=== PATIENT | male | born 1995 | race Caucasian/White ===

== ENCOUNTER 2024-01-30 15:05 | Emergency (ER) | payer MEDICAID ==
[~2024-01-30] VITALS: Ht 177.8 cm; Wt 91.0 kg
[2024-01-30 15:19] VITALS: O2SAT 97
[2024-01-30] MEDS ORDERED: ACETAMINOPHEN 325MG TABLET PO ONE (16:00)
[2024-01-30] MEDS ORDERED: KETOROLAC 30MG/ML VIAL IM ONE (16:00)
[2024-01-30] MEDS ORDERED: TETANUS, DIPHTHERIA, PERTUSSIS VAC/PF 0.5ML (>10YR OLD) IM ONE (16:00)
[2024-01-30] MEDS: LIDOCAINE HCL 1% 20ML VIAL INFIL ONE (17:45)
[2024-01-30] MEDS: MIDAZOLAM HCL 2 MG/2 ML VIAL IM ONE (18:16)
[2024-01-30 18:39] LABS: BASOPHILS % 0.4 % (0.0-2.0); EOSINOPHILS % 0.8 % (0.0-5.0); HEMATOCRIT. 40.8 % (42.0-52.0); HEMOGLOBIN. 13.9 g/dL (14.0-18.0); LYMPHOCYTES % 20.4 % (20.0-50.0); MEAN CORPUSCULAR HEMOGLOBIN 31.8 pg (28.0-32.0); MEAN CORPUSCULAR VOLUME 93.3 fL (80.0-94.0); MEAN PLATELET VOLUME 9.5 fl (7.4-10.4); MONOCYTES % 9.1 % (2.0-8.0); NEUTROPHILS % 69.3 % (40.0-76.0); PLATELET 367 x1000/uL (130-400); RED BLOOD CELL COUNT 4.37 mill/uL (4.7-6.1); RED CELL DISTRIBUTION WIDTH 14.9 % (11.6-14.6)
[2024-01-30 18:44] LABS: CHLORIDE 109 mEq/L (98-107); POTASSIUM 3.4 mEq/L (3.5-5.1); SODIUM 141 mEq/L (136-145)
[2024-01-30 18:45] LABS: CALCIUM 9.9 mg/dL (8.7-10.4); CARBON DIOXIDE 23 mEq/L (21-32)
[2024-01-30 18:50] LABS: GLUCOSE 101 mg/dL (70-105); UREA NITROGEN BLOOD 12 mg/dL (9-23)
[2024-01-30 18:52] LABS: ACETAMINOPHEN < 2 ug/mL (10-30)
[2024-01-30 19:03] LABS: ETHANOL BLOOD < 10 mg/dL (<10)
[2024-01-30] MEDS: ACETAMINOPHEN 325MG TABLET PO NR (21:30)
[2024-01-30] MEDS: KETOROLAC 30MG/ML VIAL IM NR (21:30)
[2024-01-30 22:44] LABS: CLARITY URINE CLEAR (CLEAR); COLOR URINE DARK YELLOW (YELLOW); GLUCOSE URINE NEGATIVE (NEGATIVE); KETONES URINE 3+ (NEGATIVE); LEUKOCYTE ESTERASE URINE NEGATIVE (NEGATIVE); NITRITE URINE NEGATIVE (NEGATIVE); OCCULT BLOOD URINE NEGATIVE (NEGATIVE); PROTEIN URINE 1+ (NEGATIVE); SPECIFIC GRAVITY URINE 1.034 (1.005-1.030)
[2024-01-30] MEDS: TETANUS, DIPHTHERIA, PERTUSSIS VAC/PF 0.5ML (>10YR OLD) IM ONE (22:47)
[2024-01-30 22:54] LABS: *AMPHETAMINES SCREEN URINE PRESUMPTIVE POSITIVE (NEGATIVE); *BARBITURATES SCREEN URINE NEGATIVE (NEGATIVE); *BENZODIAZEPINES SCREEN URINE PRESUMPTIVE POSITIVE (NEGATIVE); *COCAINE SCREEN URINE PRESUMPTIVE POSITIVE (NEGATIVE)
[2024-01-30 22:55] LABS: CANNABINOID URINE SCREEN PRESUMPTIVE POSITIVE (NEGATIVE); ECSTASY MDMA SCREEN URINE NEGATIVE (NEGATIVE); METHADONE URINE SCREEN NEGATIVE (NEGATIVE); OPIATES URINE SCREEN NEGATIVE (NEGATIVE); PHENCYCLIDINE URINE SCREEN NEGATIVE (NEGATIVE)
[2024-01-30 23:13] LABS: BACTERIA URINE 1+; RBC URINE NONE SEEN /hpf (0-2); SQUAMOUS EPITHELIAL CELL URINE 1+ /lpf (RARE/1+); WBC URINE 0-2 /hpf (0-2); YEAST URINE NONE SEEN
[2024-01-30] MEDS: AMPICILLIN SOD/SULBACTAM NA 3 G in SODIUM CHLORIDE 0.9% 100 ML IV SCH (23:46)
[2024-01-31 18:46] VITALS: BP 119/77; PULSE 79; RESP 18; TEMP 36.83628; O2SAT 98
== END 2024-01-31 21:31 | disposition short-term general hospital (02) ==
LOC: ER 15:05
DX: S02.40DA Maxillary fracture, left side, initial encounter for closed fracture (principal); S62.304A Unspecified fracture of fourth metacarpal bone, right hand, initial encounter for closed fracture; F20.9 Schizophrenia, unspecified; I49.9 Cardiac arrhythmia, unspecified; Z20.822 Contact with and (suspected) exposure to COVID-19; Y04.0XXA Assault by unarmed brawl or fight, initial encounter; Y93.89 Activity, other specified; Y92.89 Other specified places as the place of occurrence of the external cause; Y99.8 Other external cause status
CPT/HCPCS: 80305; 80048; 81003; 80307; 80329; 80320; 85025; 36415; 73130; 70450; 70486; 72125; 90715; 93005; 12015; 26605; 90471; 96372; 99291; 87426; J0295; J1885; J3490; J2250; J7050; Z7610 ×3; G0480